=== PATIENT | female | born 1970 | race Caucasian/White ===

== ENCOUNTER 2017-08-05 12:59 | Emergency (ER) | payer OTHER ==
[~2017-08-05] VITALS: Ht 154.9 cm; Wt 67.7 kg
[2017-08-05] MEDS ORDERED: ESCI5TAB PO (13:57)
[2017-08-05] MEDS ORDERED: ALBU8.5H8 IH (13:57)
[2017-08-05 16:05] VITALS: BP 134/89
[2017-08-05] MEDS ORDERED: ALBUTEROL SULFATE HFA 90 MCG/PUFF 8 GM INHALER IH ONE (16:45)
== END 2017-08-05 17:08 | disposition home or self-care (01) ==
LOC: EMS 13:07
DX: J45.909 Unspecified asthma, uncomplicated (principal); J32.9 Chronic sinusitis, unspecified; Z87.891 Personal history of nicotine dependence; Z88.6 Allergy status to analgesic agent; Z88.5 Allergy status to narcotic agent; Z91.030 Bee allergy status
CPT/HCPCS: 94640; 99283; J3535

== ENCOUNTER 2017-08-19 16:49 | Emergency (ER) | payer MEDICAID, OTHER ==
[~2017-08-19] VITALS: Ht 154.9 cm; Wt 68.2 kg
[~2017-08-19 16:49] MED LIST: ALBU8.5H8 IH; ESCI5TAB PO
[2017-08-19] MEDS ORDERED: ESCI20TA PO (17:08)
[2017-08-19] MEDS ORDERED: IPRATROPIUM BROMIDE 0.5 MG/2.5 ML NEB SOLUTION NEB ONE (18:15)
[2017-08-19] MEDS ORDERED: ALBUTEROL SULFATE 2.5 MG/0.5 ML NEB SOLUTION NEB ONE (18:15)
[2017-08-19 18:44] LABS: INFLUENZA TYPE A NEGATIVE FOR TYPE A (NEGATIVE); INFLUENZA TYPE B NEGATIVE FOR TYPE B (NEGATIVE)
[2017-08-19 19:20] VITALS: BP 122/74
== END 2017-08-19 20:06 | disposition home or self-care (01) ==
LOC: EMS 16:50
DX: J45.901 Unspecified asthma with (acute) exacerbation (principal); B34.9 Viral infection, unspecified; M79.1 Myalgia; Z87.891 Personal history of nicotine dependence; Z88.6 Allergy status to analgesic agent; Z88.1 Allergy status to other antibiotic agents; Z91.030 Bee allergy status
CPT/HCPCS: 87804; 94640; 99284; J7613